=== PATIENT | male | born 1970 | race Caucasian/White ===

== ENCOUNTER → 2019-11-12 15:16 | Outpatient (BNVA) | payer BC, SELFPAY | PROVIDERS: Family Provider Registered Nurse; PCP Registered Nurse; Visit Provider Nurse Practitioner Family | DX: N40.1 Benign prostatic hyperplasia with lower urinary tract symptoms (principal); E11.9 Type 2 diabetes mellitus without complications; R35.1 Nocturia; Z12.5 Encounter for screening for malignant neoplasm of prostate | CPT/HCPCS: 81003; 83036; G0103 ==

== ENCOUNTER → 2020-08-10 11:15 | Outpatient (BNVA) | payer BC, SELFPAY | PROVIDERS: Family Provider Registered Nurse; PCP Registered Nurse; Visit Provider Nurse Practitioner | DX: Z11.59 Encounter for screening for other viral diseases (principal) | CPT/HCPCS: 87635 ==

== ENCOUNTER 2020-08-13 09:19 | Emergency (ER) | payer BC, SELFPAY ==
[2020-08-13 09:20] VITALS: BP 102/86; PULSE 99; RESP 16; TEMP 37.1; O2SAT 95; BMI 46.5
[2020-08-13 09:40] VITALS: O2SAT 96
--- NOTE | 2020-08-13 09:48 | PC.NURSE ---
PATIENT RESTING IN COVID WAITING ROOM RR EVEN AND NONLABORED. VS TRENDING. NO CONCERNS ARE NOTED
--- NOTE | 2020-08-13 10:15 | W.ED.COVID ---
HPI - COVID General: Chief Complaint: COVID symptoms Stated Complaint: + covid, CHPAA, nausea, diarrhea Time Seen by Provider: 08/13/20 09:57 Triage information: Has fever, cough or shortness of breath. Exposure to COVID + person last 14 days History of Present Illness: HPI Narrative: 50-year-old male patient presents to the emergency room with 8-day onset of cough and congestion. His spouse tested positive for COVID 10 days ago, he reports was contacted this morning with positive results. He reports cough congestion with increased shortness of breath. He reports is scared, due to shortness of breath. He reports chest pain with cough. Denies hemoptysis or productive cough, denies vomiting O2 saturation 96% on room air. MD complaint: known COVID positive Prior covid testing: yes, results known COVID 19 common symptoms: positive fever(s), chills, cough, non-productive cough, dyspnea, body aches and loss of sense of smell and/or taste; negative headache(s), throat pain, nausea or vomiting COVID 19 other sytmptoms: positive pleuritic pain; negative chest pain Onset (ago): day(s) (8) Pertinent comorbid conditions: diabetes and hypertension Treatment prior to arrival: acetaminophen COVID Results: SARS-CoV-2 RNA (RT-PCR) Detected (NOT DETECTED) A 08/10/20 11:15 08/10/20 Review of Systems General: Reports: 10 or more systems reviewed and unremarkable except in HPI and below Const: Reports: fever(s), chills and body aches Eyes: Denies: blurry vision or eye redness ENMT: Denies: throat pain, dental pain or disequilibrium Card: Denies: chest pain, palpitations or irregular heart rhythm Resp: Reports: dyspnea and non-productive cough GI: Denies: abdominal pain, nausea or vomiting : Denies: difficulty urinating or dysuria Musc: Denies: back pain Skin/Breast: Denies: rash or pruritus Neuro: Denies: headache(s), weakness in extremities or behavioral changes Bhargav/Lymph: Denies: easy bruising [facility] ED PFSH: Medical History (Updated 08/13/20 @ 11:16 by CASIE Duron) Chronic low back pain with bilateral sciatica DM type 2 (diabetes mellitus, type 2) Family History Other Cancer Hypertension Myocardial infarction Stroke Social History (Updated 08/13/20 @ 09:26 by Sunny Vee RN) Smoking and tobacco status: never smoked Alcohol intake: never Current occupational status: employed Physical Exam Const: COMMON NORMALS: no acute distress, patient oriented x3, healthy appearing and alert GENERAL APPEARANCE: cooperative, comfortable and well hydrated HENMT: COMMON NORMALS: normocephalic, atraumatic, EAC's normal, Normal external nose present and moist oral mucous membranes HEAD & SCALP: normocephalic and atraumatic NOSE: Normal external nose present EXTERNAL AUDITORY CANAL: EAC's normal MOUTH: Normal oral and palatal mucosa present THROAT: posterior oropharynx normal Eye: COMMON NORMALS: Equal, round and reactive pupils present and EOMs intact bilaterally GENERAL EYE: appearance normal, both eyes and all related structures PUPIL: Yes Equal, round and reactive pupils present Neck/C-Spine: COMMON NORMALS: full ROM and no lymphadenopathy GENERAL: Yes normal visual inspection and Yes trachea midline CERVICAL SPINE: Yes cervical ROM normal Lymph: LYMPHATIC: no lymphadenopathy noted Chest: COMMONS NORMALS: normal inspection of the chest and normal palpation of entire chest wall Resp: COMMON NORMALS: clear to auscultation bilaterally EFFORT & INSPECTION: Yes able to speak in complete sentences AUSCULTATION: clear to auscultation bilaterally and diminished lung sounds bilateral in the lower lung carcamo Cardio: COMMON NORMALS: regular rhythm, S1 normal heart sound present, S2 normal heart sound present and Peripheral pulses 2+ throughout RHYTHM: regular rhythm HEART SOUNDS: S1 normal heart sound present and S2 normal heart sound present PERIPHERAL PULSES: Peripheral pulses 2+ throughout GI: COMMON NORMALS: Soft to palpation and non-tender INSPECTION: Yes normal to inspection PALPATION: Yes Soft to palpation : COMMON NORMALS: Yes no CVA tenderness BLADDER/KIDNEY EXAM: Yes no CVA tenderness Back/Pelvis: COMMON NORMALS: no CVA tenderness and thoracic and lumbar spine normal to inspection Extremity: COMMON NORMALS: normal to inspection and capillary refill normal Neuro: COMMON NORMALS: patient oriented x3 and no focal motor deficits SENSORIUM/ORIENTATION: Yes alert Psych: COMMON NORMALS: mental status grossly normal, Normal thought process present and cooperative ACTIVITY/MOTOR BEHAVIOR: Yes appropriate eye contact THOUGHT PROCESS: Normal thought process present Skin: COMMON NORMALS: no rashes or lesions noted and turgor normal GENERAL SKIN EXAM: no rashes or lesions noted and turgor normal Course ED course: 50-year-old male patient presents to the emergency department with positive COVID results and symptoms. He reports anxiety since diagnosis. O2 saturation with exertion 95 to 96%. Chest x-ray revealed minimal left basilar atelectasis, he did not wish for serology testing, he reports feels better knowing his oxygen saturation is normal. COVID care discussed, he is aware next couple of days can become worse. He agrees to monitor his oxygen saturation at home as oxygen sensor was provided today in the ED. He agrees to return to the emergency department if he develops hypoxia, oxygen saturation less than 90 to 91%. He is able to eat and drink without difficulty. Vital Signs: Vital signs: Vital Signs Temperature 98.8 F 08/13/20 09:20 Pulse Rate 102 H 08/13/20 11:11 Respiratory Rate 16 08/13/20 09:20 Blood Pressure 137/87 08/13/20 11:11 Pulse Oximetry 94 08/13/20 11:11 MDM - COVID Lab Data COVID Results: SARS-CoV-2 RNA (RT-PCR) Detected (NOT DETECTED) A 08/10/20 11:15 08/10/20 Imaging Data CXR: Radiologist's impression: [address] [address] XRay Report Signed Patient: Renny Martinez #: [id number] : 1970Acct#:[id number] Age/Sex: 50 / MADM Date: 08/13/20 Loc: ERRoom/Bed: Attending Dr: Ordering Provider/Ordering MD: Celena Wong Date of Service: 08/13/20 Procedure(s): XR chest 1V portable [id number] Accession Number(s): [id number] Report Number: [id number] PROCEDURE INFORMATION: Exam: XR Chest, 1 View Exam date and time: 08/13/2020 10:43 AM Age: 50 years old Clinical indication: Covid +; Syncope TECHNIQUE: Imaging protocol: XR of the chest Views: 1 view. COMPARISON: CR Chest 1 [place] [id number] 07/23/2019 3:55 PM FINDINGS: Lungs: Poor inspiration. Decreased lung volumes. Minimal left basilar atelectasis. There is an azygos fissure, an anatomic variant. No focal peripheral lung consolidation, air bronchogram formation, or silhouette sign. Pleural space: No pleural effusion or pneumothorax. Heart/Mediastinum: The cardiac silhouette is not enlarged. The mediastinal contours are normal. Bones/joints: No acute osseous abnormality. XR/XR chest 1V portable [id number] IMPRESSION: Minimal left basilar atelectasis. Noncontrast CT CHEST is more sensitive in detecting changes of COVID-19 pneumonia. Dictated By:Papo Montemayor Signed By:Papo MontemayorSignsandoval Date/Time:08/13/20 1133 DD/ 1132 Discharge Plan Discharge Patient Disposition: Home Clinical Impression: COVID-19, Shortness of breath Condition: Stable Prescriptions: New Zofran 4 mg tablet 4 mg PO Q6H PRN (Reason: nausea and vomiting) 4 Days Qty: 14 RF: 0 No Action cyclobenzaprine 10 mg tablet 10 mg PO Q8H RF: 0 pantoprazole 40 mg tablet,delayed release (DR/EC) 40 mg PO QAM Qty: 5 RF: 0 gabapentin 300 mg capsule 300 mg PO .hs Qty: 5 RF: 0 Hold Instructions: Patient No Longer Taking escitalopram oxalate [Lexapro] 20 mg tablet 20 mg PO DAILY Qty: 5 RF: 0 metformin 500 mg tablet See Rx Instructions .ROUTE .COMPLEX Qty: 60 RF: 0 metoprolol succinate 100 mg tablet extended release 24 hr See Rx Instructions .ROUTE .COMPLEX Qty: 30 RF: 0 Discharge Orders: Discharge Order (Routine); Ordered 08/13/20 Ordered By: Celena Wong Referrals: Alessandro Wheeler FNP [Primary Care Provider] - Discharge Diet: Diabetic Discharge Activity: Limit activity as instructed Patient Instructions: Viral Syndrome (ED) Activity Restrictions/Additional Instructions: Monitor oxygen saturation frequently, if oxygen saturation drops 90 to 91%, you will need to return to the emergency department. Take it easy over the next several days, do not engage in vigorous activities. You will need to rest, sit upright to help with breathing. You will need to quarantine at home for the next 10 days. Follow-up with your primary care provider in 3 to 4 days. Return to the emergency department if you develop chest pain, increased shortness of breath, inability to catch your breath, or vomiting with use of Zofran. Take Tylenol or Motrin as needed for pain/fever Stand Alone Forms: Work/School Release Discharge Date/Time: 08/13/20 11:30 Coding Level of Care Code ED Carroting Machine Offbearer for Leonidas Fwd Exam Comprehensive
[2020-08-13 10:33] VITALS: BP 119/88; PULSE 97; O2SAT 95
[2020-08-13] MEDS: ondansetron 4 MG Tablet PO (10:33)
--- NOTE | 2020-08-13 10:39 | PC.NURSE ---
portable xray at bedside
[2020-08-13] MEDS: acetaminophen 500 mg Tablet 1000 MG PO (11:06)
[2020-08-13 11:11] VITALS: BP 137/87; PULSE 102; O2SAT 94
--- NOTE | 2020-08-13 13:44 | DCPLANNER ---
compensation programs manager was asked to schedule a telehealth visit for patient with primary care physician. compensation programs manager called the [facility], spoke with Shahla, a follow up appointment is scheduled for Tuesday, August 15, 2020 at 10:30 with primary care. Clinic will call patient with appointment information.
--- NOTE | 2020-08-19 14:02 | DCPLANNER ---
Patient did attend [place] for [place].20 [place] [facility] [place].
== END 2020-08-13 11:30 | disposition home or self-care (01) ==
PROVIDERS: Emergency Provider Nurse Practitioner Family; PCP Registered Nurse
DX: U07.1 COVID-19 (principal); R06.02 Shortness of breath; E11.9 Type 2 diabetes mellitus without complications; Z79.84 Long term (current) use of oral hypoglycemic drugs
CPT/HCPCS: 12345; 71045; 99282; 99283; Q0162

== ENCOUNTER 2020-08-15 13:12 | Emergency (ER) | payer BC, SELFPAY ==
[2020-08-15 13:56] VITALS: BP 152/95; PULSE 103; RESP 18; O2SAT 94; BMI 45.7
--- NOTE | 2020-08-15 13:58 | XR_ITS ---
WS: [id number] PORTABLE CHEST HISTORY: Dyspnea COMPARISON: 08/13/2020 Lung volumes are markedly decreased. No obvious pneumonia. No pleural effusion or pneumothorax. Cardiac size: Normal. Mediastinum/Aorta: Normal mediastinum. No osseous abnormality seen. XR/XR chest 1V portable [id number] IMPRESSION: Limited by poor inspiration. No pneumonia identified.
[2020-08-15 14:15] VITALS: PULSE 115; RESP 19; O2SAT 97
--- NOTE | 2020-08-15 14:22 | PC.NURSE ---
RADIOLOGY AT BEDSIDE FOR X-RAY
--- NOTE | 2020-08-15 14:23 | ED_ITS ---
HPI - COVID General: Chief Complaint: COVID symptoms Stated Complaint: COVID +/ sob Time Seen by Provider: 08/15/20 14:15 Source: patient Mode of arrival: ambulatory Limitations: no limitations Triage information: Has fever, cough or shortness of breath . Exposure to COVID + person last 14 days History of Present Illness: HPI Narrative: Mr. Martinez is a nice 50-year-old male comes in complaining of increased shortness of breath and nausea. Patient was positive for Covid when tested. He states he had symptoms for 9 days now. He states that the past 2 days has been more nauseated and more short of breath. Denies any actual vomiting. Does not report any chest pain. States she just feels weak and achy and severely nauseated. Of all his complaints he says his nausea is by far the worst. Any type of exertion makes his symptoms worse and rest does seem to make them better. COVID 19 common symptoms: positive dyspnea and nausea; negative fever(s), c hills, non-productive cough, productive cough, fatigue, body aches, headache(s), throat pain, vomiting or diarrhea COVID 19 other sytmptoms: negative chest pain or confusion COVID Results: SARS-CoV-2 RNA (RT-PCR) Detected (NOT DETECTED) A 08/10/20 11:15 08/10/20 Review of Systems Const: Denies: fever(s), chills, body aches, fatigue, malaise or diaphoresis Eyes: Denies: change in vision, blurry vision, photophobia, eye discomfort, eye discharge, eye redness or yellow eyes ENMT: Denies: throat pain, odynophagia, hoarseness, swelling of lips/tongue, ear or mastoid pain, ear discharge, change in hearing or nasal discharge Card: Denies: chest pain, palpitations, irregular heart rhythm, edema, lightheadedness, syncope, pre-syncope, dyspnea on exertion or orthopnea Resp: Reports: dyspnea; Denies: productive cough, non-productive cough, wheezing, hemoptysis or chest congestion GI: Reports: nausea; Denies: abdominal pain, vomiting, hematemesis, coffee ground emesis, heartburn, diarrhea, constipation, GI cramping, hematochezia or melena : Denies: flank pain, dysuria, urinary frequency, urinary urgency or hemat uria Musc: Denies: neck pain, back pain, extremity pain, extremity swelling, joint pain, joint swelling, joint redness, joint warmth or joint stiffness Skin/Breast: Denies: rash, pruritus, erythema, skin pain or skin tenderness Neuro: Denies: headache(s), numbness in extremities, weakness in extremities, sensory changes, lack of coordination, difficulty walking, dizziness, vertigo, confusion, Slurred speech present or seizure-like activity Bhargav/Lymph: Denies: easy bruising, easy bleeding, petechiae, purpura or enlarged lymph nodes All/Imm: Denies: urticaria, throat swelling, tongue swelling, facial swelling or acute wheezing PFSH ED PFSH: Medical History (Updated 08/15/20 @ 16:11 by Gali Puckett) Chronic low back pain with bilateral sciatica Depression DM type 2 (diabetes mellitus, type 2) Family History Other Cancer Hypertension Myocardial infarction Stroke Social History Smoking and tobacco status: never smoked Alcohol intake: never Current occupational status: employed Physical Exam Const: COMMON NORMALS: no acute distress, patient oriented x3, no limitations and alert GENERAL APPEARANCE: cooperative HENMT: COMMON NORMALS: normocephalic, atraumatic, external ears normal, EAC's normal and Normal external nose present HEAD & SCALP: normal to inspection, normocephalic and atraumatic FACE & SINUS: normal facial exam and face symmetric NOSE: Normal external nose present and Normal nares present EX TERNAL EAR: Yes external ears normal EXTERNAL AUDITORY CANAL: EAC's normal MOUTH: Normal oral and palatal mucosa present, lip normal and tongue normal Eye: COMMON NORMALS: Equal, round and reactive pupils present and conjunctivae normal GENERAL EYE: appearance normal, both eyes and all related structures ALIGNMENT: Yes alignment normal PERIORBITAL: periorbital findings normal EYELID: eyelids normal CONJUNCTIVA: Yes conjunctivae normal SCLERA: sclerae normal PUPIL: Yes Equal, round and reactive pupils present Neck/C-Spine: COMMON NORMALS: full ROM, no lymphadenopathy, supple, no meningeal signs and no JVD GENERAL: Yes normal visual inspection and Yes trachea midline Chest: COMMONS NORMALS: normal inspection of the chest and normal palpation of entire chest wall Resp: COMMON NORMALS: normal respiratory effort, No retractions, No use of accessory muscles and clear to auscultation bilaterally EFFORT & INSPECTION: Yes able to speak in complete sentences and Yes symmetric chest movement AUSCULTATION: clear to auscultation bilaterally, no crackles, no rales, no rhonchi and no wheezes Cardio: COMMON NORMALS: no JVD, regular rate, regular rhythm, S1 normal heart sound present and S2 normal heart sound present RATE: regular rate RHYTHM: regular rhythm HEART SOUNDS: S1 normal heart sound present, S2 normal heart sound present, no click, no gallops, no murmurs and no rubs GI: COMMON NORMALS: Soft to palpation and No hepatosplenomegaly present PALPATION: Yes Soft to palpation, No Tenderness to palpation present (GI), No Guarding due to palpation present (GI), No Rigid due to palpation, Yes No hepatosplenomegaly present, No Hernia present, No Palpable mass present and No Pulsatile mass present : COMMON NORMALS: Yes no CVA tenderness BLADDER/KIDNEY EXAM: Yes no CVA tenderness Back/Pelvis: COMMON NORMALS: no CVA tenderness, thoracic and lumbar spine normal to inspection, no thoracic nor lumbar tenderness and thoraco-lumbar ROM normal Extremity: COMMON NORMALS: normal to inspection, full ROM, capillary refill normal, no joint enlargement, no clubbing, cyanosis or edema and no calf tenderness Neuro: COMMON NORMALS: patient oriented x3, CN's II-XII intact bilaterally, moves all extremities, no focal motor deficits and no sensory deficits noted SENSORIUM/ORIENTATION: Yes alert MENINGEAL SIGNS: Yes no meningeal signs SPEECH: speech normal Psych: COMMON NORMALS: mental status grossly normal, Normal thought process present, cooperative, normal affect, speech normal and activity/motor behavior normal SPEECH: Yes normal speech THOUGHT PROCESS: Normal thought process present Skin: COMMON NORMALS: no rashes or lesions noted, turgor normal, no jaundice, no petechiae and no mottling GENERAL SKIN EXAM: no rashes or lesions noted and turgor normal Course Vital Signs: Vital signs: Vital Signs Temperature 99.6 F 08/15/20 16:41 Pulse Rate 107 H 08/15/20 16:41 Respiratory Rate 18 08/15/20 16:41 Blood Pressure 116/84 08/15/20 16:41 Pulse Oximetry 93 08/15/20 16:41 MDM - COVID MDM Narrative Medical decision making narrative: 1609 -Mr. Martinez is feeling much better at this time. He has not coughed here he no longer feels nauseated. He states t hat he believes he is 9 or 10 days and his symptoms so he should begin to start improving I would believe. I see no evidence of acute coronary syndrome, pneumonia or other acute life-threatening infection. The patient is not hypoxic as low as his oxygen goes is 92% on room air here. His lung sounds are clear he shows no sign of respiratory distress. He states his greatest complaint is that of nausea which is resolved with the Zofran I have given him. He also would like something for cough at home. I will place him on Phenergan with codeine for his cough and Zofran for his nausea. He agrees to return should her symptoms change or worsen and he can check his pulse ox at home and he unde rstands to return if he is pulse ox goes below 90% and stays there for any length of time. Lab Data Attestation: I reviewed the patient's lab results. Result diagrams: 08/15/20 15:07 08/15/20 15:07 Labs: Lab Results 08/15/20 08/15/20 08/15/20 Range/Units 14:47 15:05 15:07 WBC 3.1 L (4.0-10.0) 10^3/uL RBC 6.22 H (4.1-5.3) 10^6/uL Hgb 16.5 (11.7-16.6) g/dL Hct 50.7 (42.0-52.0) % MCV 81.5 (80-94) fL MCH 26.5 L (28.0-34.0) pg MCHC 32.5 (30.0-36.0) g/dL RDW 12.5 (12.1-15.1) % Plt Count 123 L (130-400) 10^3/cmm MPV 8.8 (7.4-10.4) fL Neut % (Auto) 60.7 % Lymph % (Auto) 28.1 % [place] % (Auto) 10.0 % Eos % (Auto) 0.6 % Baso % (Auto) 0.3 % Neut # (Auto) 1.88 (1.8-7.7) 10^3/uL Lymph # (Auto) 0.9 (0.8-4.8) 10^3/uL [place] # (Auto) 0.3 (0.2-0.9) 10^3/uL Eos # (Auto) 0.0 (0.0-0.8) 10^3/uL Baso # (Auto) 0.0 (0.0-0.1) 10^3/uL Nucleated RBC % (auto) 0 % Nucleated RBCs # 0.0 /100WBC APTT Fibrinogen Specimen Type Arterial Sample Site Lr ABG pH 7.44 (7.35-7.45) ABG pCO2 39.4 (35-45) mmHg ABG pO2 57.6 L (80.0-100.0) mmHg ABG HCO3 26.9 H (22-26) mmol/L ABG Base Excess 2.7 H (-2.0-2.0) mmol/L Josue Test Pos Hematocrit 49.2 (42-52) % O2 Delivery Device Ra FiO2 21.0 % Specimen Drawn By Guillermo Bicycle Repairer ID Ronn Sodium (136-145) mmol/L Potassium (3.5-5.1) mmol/L Chloride (98-107) mmol/L Carbon Dioxide (22-29) mmol/L Anion Gap (5-19) BUN (6-20) mg/dL Creatinine (0.7-1.2) mg/dL GFR Calculation (90-130) mL/min Glucose (65-115) mg/dL Calculated Osmolality (285-295) mOsm/kg Lactic Acid (0.5-2.2) mmol/L Calcium (8.5-10.5) mg/dL Magnesium (1.7-2.3) mg/dL Ferritin (30-400) ng/mL Total Bilirubin (0.15-1.2) mg/dL AST (0-40) U/L ALT (0-41) U/L Alkaline Phosphatase (40-130) IU/L Lactate Dehydrogenase (135-225) U/L C-Reactive Protein (0.0-4.9) mg/L Total Protein (6.6-8.7) g/dL Albumin (3.5-5.2) g/dL Globulin (1.3-4.6) g/dL Procalcitonin (0-0.5) ng/mL Influenza Type A Ag Negative (Negative) Influenza Type B Ag Negative (Negative) 08/15/20 08/15/20 08/15/20 Range/Units 15:07 15:07 15:45 WBC (4.0-10.0) 10^3/uL RBC (4.1-5.3) 10^6/uL Hgb (11.7-16.6) g/dL Hct (42.0-52.0) % MCV (80-94) fL MCH (28.0-34.0) pg MCHC (30.0-36.0) g/dL RDW (12.1-15.1) % Plt Count (130-400) 10^3/cmm MPV (7.4-10.4) fL Neut % (Auto) % Lymph % (Auto) % [place] % (Auto) % Eos % (Auto) % Baso % (Auto) % Neut # (Auto) (1.8-7.7) 10^3/uL Lymph # (Auto) (0.8-4.8) 10^3/uL [place] # (Auto) (0.2-0.9) 10^3/uL Eos # (Auto) (0.0-0.8) 10^3/uL Baso # (Auto) (0.0-0.1) 10^3/uL Nucleated RBC % (auto) % Nucleated RBCs # /100WBC APTT Cancelled Fibrinogen Cancelled Specimen Type Sample Site ABG pH (7.35-7.45) ABG pCO2 (35-45) mmHg ABG pO2 (80.0-100.0) mmHg ABG HCO3 (22-26) mmol/L ABG Base Excess (-2.0-2.0) mmol/L Josue Test Hematocrit (42-52) % O2 Delivery Device FiO2 % Specimen Drawn By Bicycle Repairer ID Sodium 136 (136-145) mmol/L Potassium 4.1 (3.5-5.1) mmol/L Chloride 98 (98-107) mmol/L Carbon Dioxide 28 (22-29) mmol/L Anion Gap 14.1 (5-19) BUN 10 (6-20) mg/dL Creatinine 0.9 (0.7-1.2) mg/dL GFR Calculation 88.6 L (90-130) mL/min Glucose 211 H (65-115) mg/dL Calculated Osmolality 287 (285-295) mOsm/kg Lactic Acid 2.0 (0.5-2.2) mmol/L Calcium 9.0 (8.5-10.5) mg/dL Magnesium 2.1 (1.7-2.3) mg/dL Ferritin 197 (30-400) ng/mL Total Bilirubin 0.5 (0.15-1.2) mg/dL AST 60 H (0-40) U/L ALT 69 H (0-41) U/L Alkaline Phosphatase 88 (40-130) IU/L Lactate Dehydrogenase 252 H (135-225) U/L C-Reactive Protein 31.2 H (0.0-4.9) mg/L Total Protein 7.3 (6.6-8.7) g/dL Albumin 3.9 (3.5-5.2) g/dL Globulin 3.4 (1.3-4.6) g/dL Procalcitonin 0.11 (0-0.5) ng/mL Influenza Type A Ag (Negative) Influenza Type B Ag (Negative) COVID Results: SARS-CoV-2 RNA (RT-PCR) Detected (NOT DETECTED) A 08/10/20 11:15 08/10/20 Imaging Data CXR: Attestation: I personally reviewed and interpreted this imaging study as follows: My impression: Poor inspiration. No definitive infiltrates. Discharge Plan Discharge Patient Disposition: Home Clinical Impression: COVID-19, Viral pneumonitis Condition: Stable Prescriptions: New vritahkdrrwx-ephutmfqf-expjhpr 6.25-5-10 mg/5 mL syrup 5 ml PO Q6H PRN (Reason: cough) Qty: 118 RF: 0 Zofran 4 mg tablet 4 mg PO Q6H PRN (Reason: nausea and vomiting) Qty: 20 RF: 0 No Action cyclobenzaprine 10 mg tablet 10 mg PO Q8H RF: 0 pantoprazole 40 mg tablet,delayed release (DR/EC) 40 mg PO QAM Qty: 5 RF: 0 gabapentin 300 mg capsule 300 mg PO .hs Qty: 5 RF: 0 Hold Instructions: Patient No Longer Taking metformin 500 mg tablet See Rx Instructions .ROUTE .COMPLEX Qty: 60 RF: 0 metoprolol succinate 100 mg tablet extended release 24 hr See Rx Instructions .ROUTE .COMPLEX Qty: 30 RF: 0 escitalopram oxalate [Lexapro] 20 mg tablet 20 mg PO DAILY Qty: 30 RF: 2 methylprednisolone [Medrol (Hermes)] 4 mg tablets,dose pack See Rx Instructions PO PER PKG DIR Qty: 21 RF: 0 Zofran 4 mg tablet 4 mg PO Q6H PRN (Reason: nausea and vomiting) 4 Days Qty: 14 RF: 0 Discharge Orders: Discharge Order (Routine); Ordered 08/15/20 Ordered By: Gali Puckett Referrals: Alessandro Wheeler FNP [Primary Care Provider] - 1-3 days Discharge Diet: Advance as tolerated Discharge Activity: Increase activity as tolerated Patient Instructions: Viral Pneumonia (ED) Activity Restrictions/Additional Instructions: Please return to the ER immediately for any of the signs or symptoms listed on your discharge instruction sheets, worsening/changing of your symptoms, you are not getting better as quickly as expected, or for ANY other cause or concerns. Continue to monitor your pulse oximetry and if it falls below 90% and stays below 90% for any length of time please return to the ER for recheck. Be certain to fill the steroids that your doctor has prescribed and take the medicines I have prescribed you as well. Discharge Date/Time: 08/15/20 16:41 Coding Level of Care Code ED Inspector Filter Tip for Leonidas Fwgosia Exam Comprehensive
[2020-08-15] MEDS: ondansetron 2 mg/ML SDV 2 mL 4 MG IV (15:04)
[2020-08-15] MEDS: sodium chloride 0.9% 1,000 ML 150 ML IV (15:04)
[2020-08-15] MEDS: dexamethasone 4 mg/mL INJ 6 MG IVP (15:04)
[2020-08-15 15:12] LABS: Basophils % 0.3 %; Eosinophils % 0.6 %; Hematocrit 50.7 % (42.0-52.0); Hemoglobin 16.5 g/dL (11.7-16.6); Lymphocytes # 0.9 10^3/uL (0.8-4.8); Lymphocytes % 28.1 %; Mean Corpuscular HGB Conc 32.5 g/dL (30.0-36.0); Mean Corpuscular Hemoglobin 26.5 pg (28.0-34.0); Mean Corpuscular Volume 81.5 fL (80-94); Mean Platelet Volume 8.8 fL (7.4-10.4); Monocytes # 0.3 10^3/uL (0.2-0.9); Neutrophils # 1.88 10^3/uL (1.8-7.7); Neutrophils % 60.7 %; Nucleated Red Blood Cells % 0 %; Platelet Count 123 10^3/cmm (130-400); Red Blood Count 6.22 10^6/uL (4.1-5.3); Red Cell Distribution Width 12.5 % (12.1-15.1); White Blood Count 3.1 10^3/uL (4.0-10.0)
[2020-08-15 15:17] VITALS: PULSE 102; RESP 18; O2SAT 94
[2020-08-15] MEDS: albuterol 8 gm MDI 6 PUFF INHALATION (15:17)
[2020-08-15 15:19] LABS: ABG PCO2 39.4 mmHg (35-45); ABG PH Result 7.44 (7.35-7.45); Base Excess ABG 2.7 mmol/L (-2.0-2.0); Blood Gas Allen Test POS; Blood Gas Sample Site LR; Blood Gas Sample Type ARTERIAL; HCO3 ABG 26.9 mmol/L (22-26); Oxygen Device RA; PO2 ABG 57.6 mmHg (80.0-100.0)
[2020-08-15 15:20] LABS: Arterial Blood Gas Hematocrit 49.2 % (42-52)
[2020-08-15 15:38] LABS: Alanine Aminotransferase 69 U/L (0-41); Albumin Level 3.9 g/dL (3.5-5.2); Alkaline Phosphatase 88 IU/L (40-130); Anion Gap 14.1 (5-19); Aspartate Amino Transferase 60 U/L (0-40); Blood Urea Nitrogen 10 mg/dL (6-20); Carbon Dioxide 28 mmol/L (22-29); Chloride 98 mmol/L (98-107); Globulin 3.4 g/dL (1.3-4.6); Glomerular Filtration Rate 88.6 mL/min (90-130); Glucose 211 mg/dL (65-115); Lactate Dehydrogenase 252 U/L (135-225); Magnesium 2.1 mg/dL (1.7-2.3); Osmolality Calculated 287 mOsm/kg (285-295); Potassium 4.1 mmol/L (3.5-5.1); Sodium 136 mmol/L (136-145); Total Bilirubin 0.5 mg/dL (0.15-1.2); Total Protein 7.3 g/dL (6.6-8.7)
[2020-08-15 15:42] VITALS: O2SAT 92
[2020-08-15 16:02] LABS: Influenza A by IFA Negative (Negative); Influenza B by IFA Negative (Negative)
[2020-08-15 16:03] LABS: Procalcitonin 0.11 ng/mL (0-0.5)
[2020-08-15 16:14] LABS: C Reactive Protein 31.2 mg/L (0.0-4.9); Ferritin 197 ng/mL (30-400)
[2020-08-15] MEDS: promethazine-cod syrup 6.25-10mg/5 mL UDC 10 ML PO (16:29)
[2020-08-15 16:41] VITALS: BP 116/84; PULSE 107; RESP 18; TEMP 37.6; O2SAT 93
== END 2020-08-15 16:41 | disposition home or self-care (01) ==
PROVIDERS: Emergency Provider Emergency Medicine; PCP Registered Nurse
DX: U07.1 COVID-19 (principal); J12.89 Other viral pneumonia; E11.9 Type 2 diabetes mellitus without complications
CPT/HCPCS: 12345; 36600; 71045; 80053; 82728; 82803; 83605; 83615; 83735; 84145; 85025; 86140; 87804; 94640; 96361; 96374; 96375; 99283; 99284; J1100; J2405; J3535; J7030

== ENCOUNTER → 2020-08-25 11:36 | Outpatient (BNVA) | payer BC, SELFPAY | PROVIDERS: PCP Registered Nurse; Visit Provider Nurse Practitioner Family | DX: J02.9 Acute pharyngitis, unspecified (principal) | CPT/HCPCS: 87071; 87880 ==

== ENCOUNTER → 2020-10-30 13:05 | Outpatient (BNVA) | payer BC, SELFPAY | PROVIDERS: PCP Registered Nurse; Visit Provider Internal Medicine | DX: E11.9 Type 2 diabetes mellitus without complications (principal); Z79.4 Long term (current) use of insulin | CPT/HCPCS: 99205 ==

== ENCOUNTER 2020-10-30 14:19 | Outpatient (CLI) | payer BC, SELFPAY ==
[2020-10-30 17:42] LABS: Estmated Average Glucose 306; Hemoglobin A1C 12.3 % (4.0-6.0)
== END 2020-10-30 14:20 | disposition home or self-care (01) ==
LOC: LAB 14:23
PROVIDERS: PCP Registered Nurse; Visit Provider Internal Medicine
DX: E11.9 Type 2 diabetes mellitus without complications (principal)
CPT/HCPCS: 36415; 83036

== ENCOUNTER → 2020-12-01 08:36 | Outpatient (BNVA) | payer BC, SELFPAY | PROVIDERS: PCP Registered Nurse; Visit Provider Internal Medicine | DX: E11.9 Type 2 diabetes mellitus without complications (principal); I10 Essential (primary) hypertension | CPT/HCPCS: 99214 ==

== ENCOUNTER 2021-02-05 08:23 | Outpatient (CLI) | payer BC, SELFPAY ==
--- NOTE | 2021-02-05 08:36 | CT_ITS ---
WS: [id number] CT LUMBAR SPINE, noncontrast. HISTORY: LOW BACK PAIN TECHNIQUE: Contiguous 2.5 mm axial imaging are performed. Sagittal and coronal reformats are submitte d and reviewed. All CT scans at [facility] use at least one of these dose optimization te chniques: automated exposure control; mA and/or kV adjustment per patient size (includes targeted exa ms where dose is matched to clinical indication); or iterative reconstruction. IV contrast: None DLP: 1994.75 mGycm COMPARISON: None available. Slight increase in the lumbar lordosis. L4 anterolisthesis by 4 mm. Moderate facet joint arthritis at L4-5 and L5-S1. No pars defects. No vertebral body fracture. T12-L1: Osteophytic ridging around the posterior vertebral bodies with mild encroachment upon the quin tral thecal sac, slightly greater osteophyte encroachment LEFT paracentral. No high-grade stenosis. L1-2: Normal. L2-3: Normal. L3-4: Mild facet joint arthritis. Very mild annular bulge. No stenosis. L4-5: Mild diffuse annular disc bulging. Small RIGHT foraminal disc protrusion causing mild narrowing of the RIGHT foramen. There is also mild LEFT foraminal narrowing due to facet disease. Small amount of air in the facet joints bilaterally with mild widening. Mild central stenosis. L5-S1: Mild osteophytic ridging. No central stenosis. Mild RIGHT and moderate LEFT foraminal stenosis predominantly due to hypertrophic bone disease development. Visualized retroperitoneum is normal. CT/CT lumbar spine wo con* [id number] IMPRESSION: 1. Grade 1 anterolisthesis of L4 by 4 mm. 2. Moderate LEFT and mild RIGHT foraminal stenosis at L5-S1 predominantly due to hypertrophic osteophytes. 3. Mild central and bilateral foraminal stenosis L4-5, slightly greater narrow ing of the RIGHT foramen with an associated disc protrusion.
--- NOTE | 2021-02-05 08:36 | XR_ITS ---
WS: [id number] LATERAL LUMBAR SPINE: 3 view. Lateral radiographs are performed in upright neutral, flexion and extension to the patient's toleranc e. HISTORY: SPONDYLOLISTHESIS LUMBAR REGION COMPARISON: 03/01/2019 Slight increase in the lumbar lordosis. L4 anterolisthesis by 4 mm does not change during flexion. Ne ar normal alignment during extension. Retrolisthesis L1 and L2 by 3 to 4 mm with near normal alignment during flexion. During extension L1 retrolisthesis increases to 5.5 mm. Moderate facet joint arthritis at L4-5 and L5-S1. XR/XR lumbar spine f/e only [id number] IMPRESSION: 1. Grade 1 anterolisthesis of L4. Instability during flexion and extension. 2. Mild flexion extension instability at L1.
== END 2021-02-05 08:24 | disposition home or self-care (01) ==
PROVIDERS: PCP Nurse Practitioner Family; Visit Provider Nurse Practitioner
DX: M43.16 Spondylolisthesis, lumbar region (principal); M54.5 Low back pain; M53.2X6 Spinal instabilities, lumbar region; M48.07 Spinal stenosis, lumbosacral region; M48.061 Spinal stenosis, lumbar region without neurogenic claudication
CPT/HCPCS: 72120; 72131

== ENCOUNTER → 2021-06-09 15:34 | Outpatient (BNVA) | payer BC, SELFPAY | PROVIDERS: PCP Registered Nurse; Visit Provider Registered Nurse | DX: R05 Cough (principal); E03.9 Hypothyroidism, unspecified; E11.9 Type 2 diabetes mellitus without complications | CPT/HCPCS: 80053; 83036; 84443 ==

== ENCOUNTER 2021-07-10 10:36 | Emergency (ER) | payer BC, SELFPAY ==
[2021-07-10 10:57] VITALS: BP 124/81; PULSE 85; RESP 15; TEMP 36.7; O2SAT 96; BMI 43.3
--- NOTE | 2021-07-10 11:15 | ED_ITS ---
HPI - Extremity Problem General: Chief complaint: Extremity Problem,Nontraumatic Stated complaint: Pain in Left Lower leg Time Seen by Provider: 07/10/21 11:01 Source: patient Mode of arrival: ambulatory Limitations: no limitations History of Present Illness: HPI Narrative: 51-year-old male presents to the ER today for left calf pain that started during the night last night. Patient reports the pain is worse with ambulation and with movement along with deep palpation. He denies any injury yesterday or doing anything different that might have caused the pain or muscle strain. Patient contacted his PCP this a.m. who told him to go to ER for evaluation for blood clot. He denies any redness or swelling of that leg. He does report some numbness and tingling in his foot. Patient denies any history of blood clots or clotting disorders. He did get the [employer] vaccine, the second 1 about 5 weeks ago but had no complications at the time. Patient has not taken anything for the pain at this time. Patient denies any other symptoms. Denies headache, fever, chills, chest pain, shortness of breath, nausea, vomiting, diarrhea, constipation, change in bowel or bladder habits. MD Complaint: extremity pain Onset (ago): hour(s) (8) Pain Consistency: constant Location: left and lower extremity Severity scale (1-10): 5 Associated symptoms: Deny chest pain, fever(s) or rash Review of Systems Const: Denies: fever(s), chills or body aches ENMT: Denies: throat pain, nasal discharge or nasal congestion Card: Denies: chest pain, palpitations or edema Resp: Denies: dyspnea or wheezing GI: Denies: abdominal pain, nausea, vomiting, diarrhea or constipation Musc: Reports: extremity pain (Left lower extremity); Denies: neck pain, back pain or extremity swelling Skin/Breast: Denies: rash Neuro: Reports: numbness in extremities (some numbness and tingling of the L foot); Denies: headache(s) Psych: Denies: anxiety or depression PFS ED PFSH: Medical History Anxiety Chronic low back pain with bilateral sciatica Depression DM type 2 (diabetes mellitus, type 2) HTN (hypertension) Surgical History History of cardiac radiofrequency ablation (RFA) History of surgery on arm Torn bicep S/P appendectomy S/P knee surgery Left S/P rotator cuff repair Left S/P skin and subcutaneous tissue surgery Cyst removed from back Family History Other Cancer Hypertension Myocardial infarction Stroke Social History Alcohol intake: never Current occupational status: employed Physical Exam Const: COMMON NORMALS: no acute distress, patient oriented x3, healthy appearing and well nourished EXAM LIMITATIONS: no altered mental status GENERAL APPEARANCE: cooperative and comfortable HENMT: COMMON NORMALS: normocephalic HEAD & SCALP: normocephalic Neck/C-Spine: COMMON NORMALS: no JVD Lymph: LYMPHATIC: no lymphadenopathy noted Resp: COMMON NORMALS: normal respiratory effort, No retractions and clear to auscultation bilaterally EFFORT & INSPECTION: Yes able to speak in complete sentences AUSCULTATION: clear to auscultation bilaterally, no rales, no rhonchi and no wheezes Cardio: COMMON NORMALS: no JVD, regular rate, regular rhythm and No murmurs present (Cardio) RATE: regular rate RHYTHM: regular rhythm PERIPHERAL PULSES: posterior tibial pulses present and dorsalis pedis present GI: COMMON NORMALS: Normal to inspection, nondistended, normoactive bowel sounds present, Soft to palpation and non-tender PALPATION: Yes Soft to palpation Back/Pelvis: THORACIC SPINE/UPPER BACK: Yes normal to inspection and Yes thoracic ROM normal LUMBAR SPINE/LOWER BACK: Yes normal to inspection and Yes lumbar ROM normal Extremity: COMMON NORMALS: normal to inspection, full ROM and no pedal edema; negative for no calf tenderness (left calf tenderness and positive Homans sign) GENERAL: Yes calf tenderness, No edema, No pallor and No pulses abnormal Neuro: COMMON NORMALS: patient oriented x3, moves all extremities and gait normal Psych: COMMON NORMALS: mental status grossly normal and speech normal SPEECH: Yes normal speech Skin: COMMON NORMALS: no rashes or lesions noted and no wounds GENERAL SKIN EXAM: no rashes or lesions noted Course ED course: Discussed treatment options with patient. We will go ahead with ultrasound to rule out DVT and to ease patient's mind. This was suggested to patient by PCP. Vital Signs: Vital signs: Vital Signs Temperature 98.1 F 07/10/21 10:57 Pulse Rate 85 07/10/21 10:57 Respiratory Rate 15 07/10/21 10:57 Blood Pressure 124/81 07/10/21 10:57 Pulse Oximetry 96 07/10/21 10:57 Critical Care Time Critical Care Time: Critical Care Time: No MDM - Extremity (Nontraumatic) MDM Narrative: Medical decision making narrative: We will get ultrasound in ER to rule out DVT, patient was told by PCP to come for rule out DVT. Likelihood of this is pretty low given normal exam other than tenderness to palpation. Preliminary ultrasound does not indicate DVT. Likely this is a muscle strain of some sort. Discussed findings with patient who agrees with conservative treatment at this time and will follow up with PCP next week. Discharge Plan Discharge Patient Disposition: Home Condition: Stable Prescriptions: No Action (DME) pen needle, diabetic [1st Tier Unifine Pentips] 31 gauge x 3/16 needle See Rx Instructions .ROUTE .MEDSUPPLY Qty: 50 RF: 0 telmisartan [Micardis] 20 mg tablet 20 mg PO DAILY Qty: 90 RF: 0 metformin 1,000 mg tablet 1,000 mg PO DAILY RF: 0 Ozempic 0.25 mg or 0.5 mg(2 mg/1.5 mL) pen injector 1 mg SUBCUT .once a week 30 Days Qty: 1.5 RF: 2 metoprolol succinate 100 mg tablet extended release 24 hr See Rx Instructions .ROUTE .COMPLEX Qty: 90 RF: 1 pantoprazole 40 mg tablet,delayed release (DR/EC) See Rx Instructions .ROUTE .COMPLEX Qty: 90 RF: 0 venlafaxine 150 mg capsule,extended release 24hr See Rx Instructions .ROUTE .COMPLEX Qty: 30 RF: 0 Discharge Orders: Discharge ED (Routine); Ordered 07/10/21 Ordered By: Mony Story Referrals: Alessandro Wheeler FNP [Primary Care Provider] - Discharge Diet: Usual diet Discharge Activity: Increase activity as tolerated Patient Instructions: Opioid Safety Activity Restrictions/Additional Instructions: Rest and stretching as discussed. Take anti-inflammatories like ibuprofen or Aleve for pain. Recommend a muscle rub or Voltaren gel. Alternate heat and ice for comfort. If no improvement in 1 week follow-up with PCP. Return to the ER with any new or worsening symptoms. Coding Level of Care Code ED Aeronautical Engineer for Leonidas Hudson
--- NOTE | 2021-07-10 11:15 | USCV_ITS ---
Renny Martinez Age: 51 Gender: M : 1970 Exam Date: 07/10/2021 11:35 Ordering Phys: Mony Story Technologist: Exam Location: [facility] [place]_ Indication: SWELLING HISTORY: Lower extremity swelling. PROCEDURES: Venous duplex imaging was performed in only the left lower extremity. The following venous structures were evaluated: common femoral vein, profunda vein, proximal portion of the greater saphenous vein, superficial femoral vein, and the popliteal vein. In addition, the posterior tibial and peroneal trunk were evaluated. FINDINGS: Normal 2-D Doppler and augmentation and compressibility throughout the lower extremity venous structures. Additional imaging through the proximal calf veins also reveals no thrombus. Limited evaluation of the greater saphenous vein is patent with no thrombus. CONCLUSIONS No DVT left lower extremity. Dr. Shyann Howard DO (Electronically Signed) Final Date: 13 July 2021 10:40 S
[2021-07-10 12:09] VITALS: BP 115/82; PULSE 85; RESP 18; O2SAT 96
== END 2021-07-10 12:09 | disposition home or self-care (01) ==
PROVIDERS: Emergency Provider Physician Assistant; PCP Registered Nurse
DX: M79.605 Pain in left leg (principal); Z79.84 Long term (current) use of oral hypoglycemic drugs; E11.9 Type 2 diabetes mellitus without complications; I10 Essential (primary) hypertension
CPT/HCPCS: 93971; 99282

== ENCOUNTER → 2022-03-16 16:39 | Outpatient (BNVA) | payer BC, SELFPAY | PROVIDERS: PCP Registered Nurse; Visit Provider Registered Nurse | DX: E11.9 Type 2 diabetes mellitus without complications (principal); I10 Essential (primary) hypertension; N40.1 Benign prostatic hyperplasia with lower urinary tract symptoms; R35.1 Nocturia | CPT/HCPCS: 80053; 80061; 83036; 84153 ==

== ENCOUNTER → 2022-11-22 08:04 | Outpatient (BNVA) | payer BC, SELFPAY | PROVIDERS: PCP Registered Nurse; Visit Provider Registered Nurse | DX: E11.9 Type 2 diabetes mellitus without complications (principal); I10 Essential (primary) hypertension | CPT/HCPCS: 80053; 82043; 83036 ==

== ENCOUNTER → 2023-04-04 08:45 | Outpatient (BNVA) | payer BC, SELFPAY | PROVIDERS: PCP Registered Nurse; Visit Provider Registered Nurse | DX: E11.9 Type 2 diabetes mellitus without complications (principal); I10 Essential (primary) hypertension; F32.9 Major depressive disorder, single episode, unspecified | CPT/HCPCS: 80053; 83036 ==

== ENCOUNTER 2023-07-21 08:04 | Outpatient (CLI) | payer BC, SELFPAY | END 2023-07-21 08:05 | disposition home or self-care (01) | PROVIDERS: PCP Registered Nurse; Visit Provider Registered Nurse | DX: R05.3 Chronic cough (principal) | CPT/HCPCS: 94010; 94726; 94729 ==

== ENCOUNTER 2023-07-29 09:28 | Day surgery (SDC) | payer BC, SELFPAY ==
[2023-07-29 09:44] VITALS: BMI 42.7
[2023-07-29 09:46] VITALS: BP 127/77; PULSE 73; RESP 18; TEMP 36.4; O2SAT 98
[2023-07-29] MEDS: sodium chloride 0.9% 1,000 ML 30 ML IV (10:11)
[2023-07-29 10:14] LABS: Glucose Point of Care 133 mg/dL (70-110)
--- NOTE | 2023-07-29 10:16 | ANES.PREANE2 ---
Pre-Anesthetic Assessment Height/Weight: Height 1.73 m Weight 127.459 kg Temp Pulse Resp BP Pulse Ox O2 Del Method 97.6 F 73 18 127/77 98 Room Air 07/29/23 09:46 07/29/23 09:46 07/29/23 09:46 07/29/23 09:46 07/29/23 09:46 07/29/23 09:46 Preop Diagnosis: screening Operation Date: 07/29/23 10:30 Proposed Procedures p Colonoscopy [id number](Not Applicable) - Toñito Sotelo DO Familial anesthetic complications: none Was Beta Dov taken within 24 hours: N/A Was Clonidine taken within 24 hours: N/A Last intake: Intake Last Liquid Date 07/28/23 Last Liquid Time 21:00 Last Solid Date 07/27/23 Last Solid Time 17:00 Social No alcohol and No tobacco Exam alert and oriented x 3 Airway Submandibular: within normal limits Cervical ROM: within normal limits Mallampati: Class I Dentition: loose (states has gum disease. bottom front 2-3 teeth are very loose) and full Pulmonary None reported CV/HEM Hypertension None reported Hepatic None reported GI Gastroesophageal Reflux Disease Metabolic Diabetes Mellitus, Hyperlipidemia and Morbid Obesity [facility] [place] None reported Neuropsych None reported Anesthetic Plan ASA status: 3 Anesthesia: Anesthesia Evaluation, General and MAC Medications/Allergies Home Medications Medication Instructions Recorded Confirmed Last Taken Type pen needle, diabetic 31 gauge x #50 ea 10/30/20 07/28/23 07/28/23 Rx 01/13 (1st Tier Unifine Pentips) ibuprofen 200 mg tablet 200 mg PO Q6H PRN Pain 01/25/23 07/28/23 07/28/23 History telmisartan 80 mg tablet 80 mg PO DAILY 90 days #90 tabs 04/04/23 07/28/23 07/28/23 Rx tirzepatide 5 mg/0.5 mL See Rx Instructions .Route 06/24/23 07/28/23 07/16/23 Rx subcutaneous pen injector .COMPLEX #4 mL (Mounjaro) clonazepam 1 mg tablet (Klonopin) 0.5 - 1 mg PO DAILY 30 days #30 06/29/23 07/28/23 07/28/23 Rx tabs metformin 1,000 mg tablet 1,000 mg PO DAILY 07/28/23 07/28/23 07/28/23 History metoprolol succinate 100 mg 100 mg PO DAILY 07/28/23 07/28/23 07/28/23 History tablet,extended release 24 hr pantoprazole 40 mg tablet,delayed 40 mg PO DAILY 07/28/23 07/28/23 07/28/23 History release rosuvastatin 10 mg tablet 10 mg PO QPM 07/28/23 07/28/23 07/28/23 History trazodone 100 mg tablet 100 mg PO QPM PRN Sleep 07/28/23 07/28/23 07/28/23 History venlafaxine 225 mg tablet,extended 225 mg PO DAILY 07/28/23 07/28/23 07/28/23 History release 24 hr Allergies Allergy/AdvReac Type Severity Reaction Status Date / Time No Known Allergies Allergy Verified 07/29/23 09:43 Current Medications Generic Name Dose Route Start Last Admin Trade Name Freq PRN Reason Stop Dose Admin Sodium Chloride 1,000 mls @ 30 mls/hr 07/29/23 09:45 07/29/23 10:11 Sodium Chloride 0.9% IV 07/30/23 09:44 30 mls/hr .Q24H NICHOLAS Administration PFSH Anesthesia Medical History Anxiety Chronic low back pain with bilateral sciatica Depression DM type 2 (diabetes mellitus, type 2) HTN (hypertension) ANIA (obstructive sleep apnea) Surgical History History of cardiac radiofrequency ablation (RFA) History of colonoscopy History of surgery on arm Torn bicep S/P appendectomy S/P knee surgery Left S/P rotator cuff repair Left S/P skin and subcutaneous tissue surgery Cyst removed from back Family History Other Cancer Hypertension Myocardial infarction Stroke Social History Smoking and tobacco status: never smoked Second hand smoke exposure: No Alcohol intake: never Substance/Drug Use: never Caregiver/support person: No Lives independently: No Household members: spouse Current occupational status: employed Sexually active: Yes Do you think of yourself as: Straight/Heterosexual Current gender identity: Male Data Anesthesia Cardiac Studies: No Data to Display
--- NOTE | 2023-07-29 10:32 | W.PM.OPSUD ---
Surgery/Procedure H&P Update DATE OF PROCEDURE: July 29, 2023 DATE H&P PERFORMED: 07/12/23 H&P UPDATE INFORMATION: I have reviewed H&P completed within last 30 days, I have examined patient prior to procedure and No changes to prior documentation PREOP DIAGNOSIS: screening PLANNED PROCEDURE: Operation Date: 07/29/23 10:30 Proposed Procedures p Colonoscopy [id number](Not Applicable) - Toñito Sotelo DO
[2023-07-29 10:48] VITALS: BP 113/66; PULSE 78; RESP 18; TEMP 36.1; O2SAT 91
[2023-07-29 11:15] VITALS: BP 130/80; PULSE 80; RESP 16; O2SAT 96
--- NOTE | 2023-07-29 13:36 | ANE.PACU2 ---
Inpatient post-anesthesia follow up: Airway intact: Yes Vital signs: Temperature 97 F Pulse Rate 80 Respiratory Rate 16 Blood Pressure 130/80 Pulse Oximetry 96 Oxygen Delivery Me thod Room Air Oxygen Flow Rate Fraction of Inspir ed Oxygen Hydration adequate: Yes Nausea and vomiting: No Pain level: 2 Mental status: Baseline
== END 2023-07-29 11:30 | disposition home or self-care (01) ==
PROVIDERS: PCP Registered Nurse; Visit Provider Surgery
PROC: 0DJD8ZZ Inspection of Lower Intestinal Tract, Via Natural or Artificial Opening Endoscopic (ICD-10-PCS; CPT 45378; principal; 2023-07-29 10:30)
DX: Z12.11 Encounter for screening for malignant neoplasm of colon (principal); K57.30 Diverticulosis of large intestine without perforation or abscess without bleeding; K63.5 Polyp of colon; I10 Essential (primary) hypertension; K21.9 Gastro-esophageal reflux disease without esophagitis; E11.9 Type 2 diabetes mellitus without complications; E78.5 Hyperlipidemia, unspecified; E66.01 Morbid (severe) obesity due to excess calories; Z68.42 Body mass index [BMI] 45.0-49.9, adult; G47.33 Obstructive sleep apnea (adult) (pediatric)
CPT/HCPCS: 36416; 45385; 82962; 88305; J2704; J7030

== ENCOUNTER → 2023-09-08 09:41 | Outpatient (BNVA) | payer BC, SELFPAY | PROVIDERS: PCP Registered Nurse; Visit Provider Anesthesiology Pain Medicine | DX: M67.912 Unspecified disorder of synovium and tendon, left shoulder (principal); M19.012 Primary osteoarthritis, left shoulder | CPT/HCPCS: 73030 ==

== ENCOUNTER → 2023-11-18 11:33 | Outpatient (BNVA) | payer BC, SELFPAY | PROVIDERS: PCP Registered Nurse; Visit Provider Registered Nurse | DX: E11.9 Type 2 diabetes mellitus without complications (principal) | CPT/HCPCS: 80053; 80061; 83036 ==

== ENCOUNTER → 2024-02-23 09:40 | Outpatient (BNVA) | payer BC, SELFPAY | PROVIDERS: PCP Registered Nurse; Visit Provider Registered Nurse | DX: E11.9 Type 2 diabetes mellitus without complications (principal); I10 Essential (primary) hypertension; N52.9 Male erectile dysfunction, unspecified | CPT/HCPCS: 83036 ==

== ENCOUNTER 2024-05-23 06:00 | Outpatient (CLI) | payer BC, SELFPAY | END 2024-05-23 06:01 | disposition home or self-care (01) | LOC: RAD 07-11 06:37 | PROVIDERS: PCP Registered Nurse; Visit Provider Registered Nurse | DX: E11.9 Type 2 diabetes mellitus without complications (principal) | CPT/HCPCS: 80061; 82607; 83036; 85025 ==

== ENCOUNTER 2024-09-06 13:18 | Outpatient (CLI) | payer BC, SELFPAY ==
--- NOTE | 2024-09-06 13:25 | MR_ITS ---
WS: [id number] MRI LUMBAR SPINE NONCONTRAST HISTORY: SPINAL STENOSIS, LUMBAR REGION COMPARISON: None available. TECHNIQUE: Sagittal and axial multisequence imaging is submitted. L4 anterolisthesis by 3.8 mm. Disc spaces are well preserved. No fractures. There is a small amount o f marrow edema in the posterior elements of L4 and L5, greater on the RIGHT. Disc spaces and vertebral body heights are well-preserved. Conus terminates normally at L1-2 disc level. T12-L1: Diffuse disc bulging with a central disc protrusion which is extruded cephalad to the disc le janet. Very minimal encroachment upon the ventral CSF. Slightly greater encroachment towards the LEFT s ubarticular recess. No stenosis. L1-L2: Mild annular disc bulging. Mild narrowing of the foramina. No high-grade stenosis. L2-L3: Normal. L3-L4: Mild disc bulging with facet joint arthritis. Mild encroachment upon the ventral canal and sub articular recesses. Mild central, bilateral subarticular recess and foraminal stenosis. Slightly grea ter encroachment upon the RIGHT exiting L3 nerve root. L4-L5: Mild annular disc bulging. Encroachment upon the ventral thecal sac. Marked ligamentum flavum and facet arthritis. Facet arthritis encroaching centrally narrowing the central canal. Moderate to s evere central with bilateral subarticular recess and mild foraminal stenosis. Most significant encroa chment upon the traversing L5 nerve roots. Fluid in the LEFT facet joint. L5-S1: Mild facet arthritis. No stenosis. Paravertebral soft tissues are normal. MR/MR lumbar spine wo con* [id number] IMPRESSION: 1. Bilateral facet joint synovitis with fluid in the facet joints at L3-4 and L4-5, most significant on the RIGHT at L4-5. 2. L4-5: Moderate to severe central with bilateral subarticular recess and mil d foraminal stenosis. Disc and facet encroachment upon the central canal. 3. T12-L1: Small central disc protrusion extends cephalad from the disc level. No stenosis. 4. L3-4: Mild central, bilateral subarticular recess and foraminal stenosis. S lightly greater encroachment upon the RIGHT exiting L3 nerve root.
== END 2024-09-06 13:19 | disposition home or self-care (01) ==
LOC: RAD 13:19
PROVIDERS: PCP Registered Nurse; Visit Provider Registered Nurse
DX: M48.061 Spinal stenosis, lumbar region without neurogenic claudication (principal); M51.360 Other intervertebral disc degeneration, lumbar region with discogenic back pain only; M47.896 Other spondylosis, lumbar region; M51.34 Other intervertebral disc degeneration, thoracic region; M65.98 Unspecified synovitis and tenosynovitis, other site
CPT/HCPCS: 72148

== ENCOUNTER → 2024-11-30 14:50 | Outpatient (BNVA) | payer BC, SELFPAY | PROVIDERS: PCP Registered Nurse; Visit Provider Registered Nurse | DX: E11.9 Type 2 diabetes mellitus without complications (principal) | CPT/HCPCS: 80048; 83036 ==

== ENCOUNTER → 2024-12-26 09:35 | Outpatient (BNVA) | payer BC, SELFPAY | PROVIDERS: PCP Registered Nurse; Visit Provider Anesthesiology Pain Medicine | DX: Z01.818 Encounter for other preprocedural examination (principal); E11.9 Type 2 diabetes mellitus without complications | CPT/HCPCS: 36416; 82962 ==

== ENCOUNTER 2025-09-05 06:51 | Outpatient (CLI) | payer BC, SELFPAY ==
--- NOTE | 2025-09-05 07:13 | MR_ITS ---
WS: [id number] MRI BRAIN WITH AND WITHOUT CONTRAST HISTORY: decline cognitive functions COMPARISON: 08/13/2011 TECHNIQUE: Multiplanar imaging performed through the brain with MultiHance 20 ml's IV. No acute infarcts are seen. Armijo-white matter differentiation is well preserved. Very minimal cerebral and cerebellar atrophy and small vessel disease. No prior infarcts. Minimal if any hippocampal atrophy. No susceptibility artifacts or prior lacunar infarcts. Ventricles and extra-axial spaces are normal. Clivus and pituitary gland are normal. Visualized posterior fossa and brainstem are also normal. Postcontrast images are negative for masses or vascular malformations. Dural venous sinuses are normal. Paranasal sinuses: No air-fluid levels within the sinuses. Very small amount of fluid in the mastoid air cells. Mastoid air cells: Small amount of fluid in the mastoid air cells. Calvarium and scalp: Normal. MR/MR head wo/w con [id number] IMPRESSION: 1. No acute infarcts or hemorrhage. 2. Minimal cerebral and cerebral atrophy and small vessel disease. 3. No prior infarcts. 4. Minimal hippocampal atrophy. 5. No enhancing masses or vascular malformations.
[2025-09-05] MEDS: gadobenate dimeglumine 20 mL vial IV (07:54)
== END 2025-09-05 06:52 | disposition home or self-care (01) ==
LOC: RAD 06:52
PROVIDERS: PCP Nurse Practitioner Acute Care; Visit Provider Nurse Practitioner Acute Care
DX: R41.89 Other symptoms and signs involving cognitive functions and awareness (principal)
CPT/HCPCS: 70553